=== PATIENT | male | born 1975 | race Caucasian/White ===

== ENCOUNTER → 2023-09-24 08:12 | Outpatient (REF) | payer OTHER, SELFPAY | LOC: MRI 08:12 | PROVIDERS: ATTENDING PHYSICIAN Specialist; FAMILY PHYSICIAN Registered Nurse | DX: R10.2 Pelvic and perineal pain (principal); N50.819 Testicular pain, unspecified; K46.9 Unspecified abdominal hernia without obstruction or gangrene | CPT/HCPCS: 72197; A9575 ==

== ENCOUNTER → 2024-07-18 09:28 | Outpatient (REF) | payer OTHER, SELFPAY | LOC: RAD 09:28 | PROVIDERS: ATTENDING PHYSICIAN Nurse Practitioner Adult Health | DX: R07.89 Other chest pain (principal); M54.2 Cervicalgia | CPT/HCPCS: 71046; 72040 ==